=== PATIENT | female | born 1995 | race Caucasian/White ===

== ENCOUNTER 2020-10-21 09:42 | Observation (INO) | payer OTHER ==
[~2020-10-21] VITALS: Ht 170.2 cm; Wt 95.3 kg
--- NOTE | ~2020-10-21 | OP ---
[address] [address] OPERATIVE REPORT Name: MANSI CHAPIN Room: [address] MCasimiro#: [id number] Admission: 10/21/20 Attend Phys: Irvin Quiroz DO Discharge: Date of : 89 Report #: [id number] THIS REPORT FOR: cc: Shahriar Vega Kent DO Kramer, Adam P. DO ~ DOC #: [id number] Irvin Quiroz DO DATE OF SURGERY: 10/21/2020 PREOPERATIVE DIAGNOSIS: Acute appendicitis. POSTOPERATIVE DIAGNOSIS: Acute appendicitis. PROCEDURE: Laparoscopic appendectomy. SURGEON: Irvin Quiroz DO. TYPE OF ANESTHESIA: General endotracheal. ESTIMATED BLOOD LOSS: Less than 20 mL COMPLICATIONS: None. DESCRIPTION OF PROCEDURE: After obtaining proper consents and discussing risks and complications with the patient, she was taken to the operating room, laid in the supine position and administered general endotracheal anesthetic. She was then prepped and draped in the usual sterile fashion. A timeout was performed. We confirmed the appropriate patient and procedure. Preoperative antibiotics had been given. SCDs were in place. We then made a small supraumbilical skin incision with a #11 scalpel blade. This was carried down through the skin and the subcutaneous tissue using electrocautery for hemostasis. Once the fascia was encountered, it was incised along the midline, grasped and elevated with Jd clamps. The peritoneum was then bluntly opened using a hemostat. A finger was placed inside the peritoneal cavity to assure there were no leatha-incisional adhesions. Next, 2-0 Vicryl sutures were placed in a [id number]-[id number] fashion to secure the Lizbet trocar, which was then inserted and insufflation was begun. Once insufflation was complete, full visual inspection of the anterior abdominal organs was performed. This revealed an inflammatory mass in the right lower quadrant. There were no other gross abnormalities. We then placed a suprapubic 5 mm trocar in the left lower quadrant. A 12 mm trocar was then able to identify the cecum and the appendix. The appendix was markedly inflamed. The base of the appendix was completely normal. We were able to elevate the appendix and then using the Harmonic scalpel, I was able to take down the mesoappendix until the appendix was attached only at its base. I then used Endo-PHILIPPE 45 mm purple load to fire across the [place] [id number] OPERATIVE REPORT Name: MANSI CHAPIN Room: [address] MCasimiro#: [id number] Admission: 10/21/20 Attend Phys: Irvin Quiroz DO Discharge: Date of : 89 Report #: [id number] appendix was then placed into an Endopouch. We then checked the appendiceal stump and mesoappendiceal stump for any leak or bleeding, there was none identified. We then removed all the trocars under direct vision. The insufflation was stopped, all air was released. The trocars were removed. The appendix was removed through the umbilical incision. The umbilical fascia was then closed using the 2 previously placed 0 Vicryl sutures plus 2 additional 0 Vicryl suture. Skin incisions were closed using 4-0 Monocryl subcuticular stitches. Mastisol, Steri-Strips, sterile Op-Site and pressure dressings were placed. The patient was awakened in the operating room and transported to recovery room in stable condition. DO LISBETH SaavedraK/RANJITH By: 1350 1419Araheem Quiroz DO /nt
[2020-10-21 09:51] VITALS: BP 147/100
[2020-10-21] MEDS ORDERED: [UNRECOGNIZED DRUG - REMARK] (09:53)
[2020-10-21 10:15] LABS: ABSOLUTE LYMPHOCYTES 1.1 thou/uL (0.8-5.3); ABSOLUTE NEUTROPHILS 19.4 thou/uL (1.6-8.1); BASOPHILS 0.2 %; HEMATOCRIT 40.1 % (37.0-47.0); HEMOGLOBIN 13.8 gm/dL (12.0-15.0); LYMPHOCYTES 4.9 %; MCH 29.4 pg (26.0-34.0); MCHC 34.5 g/dL (28.0-37.0); MCV 85.3 fL (80.0-100.0); MONOCYTES 4.8 %; MPV 7.8 fl. (7.2-11.1); NUCLEATED RBCS 0 /100WBC; PLATELET COUNT* 301 thou/uL (150-400); POLYS 90.1 %; WBC 21.5 thou/uL (4.0-11.0)
[2020-10-21 10:27] LABS: URINE BILIRUBIN NEGATIVE (Negative); URINE BLOOD 2+ (Negative); URINE CLARITY SL CLOUDY; URINE COLOR YELLOW; URINE GLUCOSE-RANDOM NEGATIVE (Negative); URINE KETONES NEGATIVE (Negative); URINE LEUKOCYTES-REFLEX NEGATIVE (Negative); URINE NITRITE-REFLEX NEGATIVE (Negative); URINE PROTEIN 2+ (Negative); URINE SPECIFIC GRAVITY >= 1.030 (1.005-1.030); URINE UROBILINOGEN 0.2 E.U./dl (0.2-1.0)
[2020-10-21 10:39] LABS: AMORPHOUS URATES Moderate /LPF (None Seen); CASTS None Seen /LPF (None Seen); MUCUS 4-6 Moderate strn/LPF (None Seen); SQUAMOUS >10 Many /LPF (0-3)
[2020-10-21 10:44] LABS: URINE RBC 3-10 Few /HPF (0-2); URINE WBC-REFLEX 0-5 Rare /HPF (0-5)
[2020-10-21 10:47] LABS: CALCIUM 9.1 mg/dL (8.5-10.1); CREATININE 0.8 mg/dL (0.6-1.3); POTASSIUM 3.5 mmol/L (3.5-5.1)
[2020-10-21 10:51] LABS: ALBUMIN 4.2 g/dL (3.4-5.0); TOTAL BILIRUBIN 0.4 mg/dL (<0.1-1.0); TOTAL PROTEIN 8.8 g/dL (6.4-8.2)
[2020-10-21 12:24] VITALS: BP 140/98
[2020-10-21] MEDS ORDERED: OXYCODONE HCL 55 MG PO (14:42)
[2020-10-21 15:40] VITALS: BP 112/65
--- NOTE | 2020-10-21 16:57 | NUR ---
1540: PATIENT TRANSFERED TO ROOM AND FLOOR VIA WHEELCHAIR ACCOMPANIED BY BOYFRIEND AND PACU NURSE. PATIENT WITH THREE INCISIONS TO ABDOMEN CLOSED WIHT DERMABOND. INTACT. IV TO RIGHT FOREARM, SALINE LOCKED PATENT. ORIENTATION TO ROOM AND FLOOR REVIEWED. BED IN LOW/LOCKED POSITION. CALL LIGHT WITHIN REACH. WILL CONTINUE TO MONITOR.
--- NOTE | 2020-10-21 17:41 | NUR ---
NO CHANGE FROM TRANSFER NOTE. PATIENT TOLERATING REGULAR DIET. STATES THAT ORAL PAIN MED IS HELPING. NO QUESTIONS OR CONCERNS VOICED
[2020-10-21 19:30] VITALS: BP 116/65
[2020-10-22] VITALS: BP 101/54
[2020-10-22 04:00] VITALS: BP 106/54
--- NOTE | 2020-10-22 04:57 | NUR ---
ASSUMED CARE AT 1920. ALERT AND ORIENTED. PLEASANT. PAIN MEDS GIVEN NEEDED. SALINE LOCK TO RIGHT FOREARM. STAND BY ASSIST. UP TO BATHROOM. DENIED ANY NAUSEA. INCISIONS X 3 TO ABD BEATRIZ. ICE PACK TO ABD FOR COMFORT. CALL LIGHT IN REACH.
[2020-10-22 07:57] VITALS: BP 106/54
[2020-10-22 08:00] VITALS: BP 127/70
[2020-10-22 09:31] VITALS: BP 106/54
--- NOTE | 2020-10-24 17:07 | PATH ---
[facility] [address] [place] [address] PATHOLOGY RPT PROCEDURE Name: MANSI CHAPIN Room: [address] Hillary Nathan#: [id number] Admission: 10/21/20 Date of : [birth year] Discharge: 10/22/20 Report #: [id number] Path Case #: [id number] [facility] Accession Number: [id number] . 01 Material submitted: . appendix - APPENDIX . 01 Clinical history: . LAPAROSCOPIC CHOLECYSTECTOMY ACUTE APPENDICITIS . 02 Diagnosis: Appendix: - Acute appendicitis, periappendicitis and serositis. (CONRADO:pit; 10/24/2020) [facility] 10/24/2020 1524 Local . 02 Electronically signed: . Reji Britt MD, Pathologist NPI- [id number] . 01 Gross description: . Fixative: Formalin Labeled: Appendix Appendix length: 7.5 cm Appendix diameter: 0.6-1.0 cm Mesoappendix: 2.1 cm Proximal margin: Inked black Serosa: Mottled lopez-brown, congested with adherent white-yellow purulent material Cut surface: Mottled pink-lopez Luminal diameter: 0.4-0.6 cm Perforation: Not present Lesions/abnormalities: No grossly apparent lesions A1 Proximal margin (inked black) and distal tip, bisected A2 Mid appendix (BLJ; 10/23/2020) [facility] 10/23/2020 2254 Local . 02 Pathologist provided ICD-10: K35.20 . 02 CPT . 873776 Specimen Comment: A courtesy copy of this report has been sent to [phone] Specimen Comment: [phone] Specimen Comment: Report sent to / [facility] Performed at: [address] [address] PATHOLOGY RPT PROCEDURE Name: MANSI CHAPIN Room: [address]#: [id number] Admission: 10/21/20 Date of : [birth year] Discharge: 10/22/20 Report #: [id number] Path Case #: [id number] [address], [place], [place] [id number] MD Bill Wolf MD Phone: [phone] Performed at: [facility] [address], [place], [place] [id number] MD Reji Britt MD Phone: [phone]
== END 2020-10-22 09:25 | disposition home or self-care (01) ==
LOC: M.ERS 09:42 → M.SUR 09:42 → M.ERS 12:22 → M.TBA-ER 14:41 → M.ORTHSURG 15:41
PROVIDERS: Physician Assistant; ADMIT Surgery; ATTEND Surgery
DX: K35.80 Unspecified acute appendicitis (principal); R11.2 Nausea with vomiting, unspecified; Z20.822 Contact with and (suspected) exposure to COVID-19; F90.9 Attention-deficit hyperactivity disorder, unspecified type; Z79.899 Other long term (current) drug therapy

== ENCOUNTER 2020-10-26 11:52 | Emergency (ER) | payer OTHER ==
[~2020-10-26] VITALS: Ht 170.2 cm; Wt 95.3 kg
[~2020-10-26 11:52] MED LIST: OXYCODONE HCL 55 MG PO; [UNRECOGNIZED DRUG - REMARK]
[2020-10-26 12:02] VITALS: BP 127/76
[2020-10-26] MEDS ORDERED: PERCOCET PO (12:15)
[2020-10-26] MEDS ORDERED: ZOFRAN ODT4 MG DISSOLVE (12:15)
== END 2020-10-26 12:20 | disposition home or self-care (01) ==
LOC: M.ERS 11:52
DX: G89.18 Other acute postprocedural pain (principal); R11.0 Nausea; K59.00 Constipation, unspecified; Z90.89 Acquired absence of other organs; Z88.8 Allergy status to other drugs, medicaments and biological substances

== ENCOUNTER 2020-10-30 05:36 | Emergency (ER) | payer OTHER ==
[~2020-10-30] VITALS: Ht 167.6 cm; Wt 103.0 kg
[~2020-10-30 05:36] MED LIST changes: +PERCOCET PO; +ZOFRAN ODT4 MG DISSOLVE
[2020-10-30 05:46] VITALS: BP 131/85
[2020-10-30 06:00] LABS: URINE BILIRUBIN NEGATIVE (Negative); URINE BLOOD NEGATIVE (Negative); URINE CLARITY CLEAR; URINE COLOR YELLOW; URINE GLUCOSE-RANDOM NEGATIVE (Negative); URINE KETONES NEGATIVE (Negative); URINE LEUKOCYTES-REFLEX NEGATIVE (Negative); URINE NITRITE-REFLEX NEGATIVE (Negative); URINE PROTEIN NEGATIVE (Negative); URINE SPECIFIC GRAVITY 1.025 (1.005-1.030); URINE UROBILINOGEN 0.2 E.U./dl (0.2-1.0)
[2020-10-30 06:03] LABS: AMP/METHAMP Negative (Negative); BARBITURATES Negative (Negative); BENZODIAZEPINES Negative (Negative); COCAINE Negative (Negative); METHADONE Negative (Negative); OPIATES Negative (Negative); PCP Negative (Negative); THC POSITIVE (Negative)
== END 2020-10-30 06:21 | disposition home or self-care (01) ==
LOC: M.ERS 05:36
PROVIDERS: Emergency Medicine
DX: G89.18 Other acute postprocedural pain (principal); R10.33 Periumbilical pain; Z90.49 Acquired absence of other specified parts of digestive tract; Z88.8 Allergy status to other drugs, medicaments and biological substances